=== PATIENT | male | born 1970 | race Caucasian/White ===

== ENCOUNTER 2024-01-06 08:41 | Outpatient (CLI) | payer OTHER, SELFPAY ==
--- NOTE | ~2024-01-06 | CT_ITS ---
CT Scan of the Chest without Contrast: Clinical Indication: Lung nodule Technique: Contiguous sections were acquired throughout the chest without intravenous contrast. Dose reduction technique was used on this scan by utilizing automated exposure control and iterative recon struction technique. The dose-length product (DLP) was 334.01 mGy-cm. Findings: There is no evidence of any significant mediastinal, hilar or axillary lymphadenopathy. The mediastin al soft tissues appear normal. There is no evidence of pleural or pericardial effusion. 4 mm nodule noted at the extreme left lung base (axial image 117). Additional 5 mm left lower lobe pu lmonary nodule present (axial images 69). Images through the upper abdomen reveal evidence of prior bariatric surgery and cholecystectomy. Impression: Left lower lobe pulmonary nodules measuring 5 mm and 4 mm, as detailed above. According to Fleischner Society criteria, for a low-risk patient, no further follow-up required. For a high-risk patient, co nsider 12 month follow-up CT. Reviewed, dictated and finalized at location . Impression: Left lower lobe pulmonary nodules measuring 5 mm and 4 mm, as detailed above. A ccording to Fleischner Society criteria, for a low-risk patient, no further fol low-up required. For a high-risk patient, consider 12 month follow-up CT.
== END 2024-01-06 08:42 | disposition home or self-care (01) ==
LOC: MICIMG 08:43
PROVIDERS: PCP Hospitalist; Visit Provider Hospitalist
DX: R91.8 Other nonspecific abnormal finding of lung field (principal)
CPT/HCPCS: 71250